=== PATIENT | male | born 1935 | race Caucasian/White ===

== ENCOUNTER 2017-06-05 21:38 | Emergency (ER) | payer MEDICARE ==
[~2017-06-05] VITALS: Ht 180.3 cm; Wt 72.5 kg
[2017-06-05 21:46] VITALS: BP 205/99; PULSE 92; RESP 20; TEMP 98; O2SAT 100
[2017-06-05] MEDS ORDERED: PROPOFOL 200 MG/20 ML AMP IV ONE (22:00)
[2017-06-05] MEDS ORDERED: TETANUS/DIPHTHERIA TOXOID ADULT 0.5 ML VIAL IM ONE (22:00)
--- NOTE | 2017-06-05 22:16 | PD ---
HPI Chief Complaint: Fall Time Seen by Provider: 21:54 Travel History International Travel<30 days: No Contact w/Intl Traveler<30days: No Traveled to known affect area: No History of Present Illness HPI 82-year-old male the presents to the ED for evaluation of fall. Apparently patient has been drinking today and had a trip and fall and landed onto his right shoulder. Patient suffered a dislocation per ambulance and was brought here for evaluation. Apparently there was multiple trials to put the shoulder back in place at the scene with no success. Patient denies any other medical issues and states that he takes no medications. History is hard to obtain from him as he is clinically intoxicated. He reports no other injuries or head injury. Follow-up was witnessed by family. Patient does have an abrasion to the right side of his ear as well as to his right hand. Has no allergies to medication. No chest pain or shortness of breath. No hip pain. Per patient he has never had any surgeries and he has never been in the hospital or seen a doctor per patient. He has no allergies to medication. No urinary or bowel movement issues. No back pain or neck pain. Patient does have obvious deformity to the right shoulder and cannot move it without significant pain. Patient keeps the shoulder externally rotated. PFSH Past Medical History Cerebrovascular Accident: Yes (ABOUT 10 YEARS AGO) Past Surgical History Surgical History: No Previous Surgery Social History Alcohol Use: Yes (BEER EVERY DAY) Tobacco Use: No Substance Use: No Allergies-Medications (Allergen,Severity, Reaction): Coded Allergies: No Known Allergies (Unverified , 06/05/17) Reported Meds & Prescriptions Reported Meds & Active Scripts Active No Active Prescriptions or Reported Medications Review of Systems Except as stated in HPI: all other systems reviewed are Neg Physical Exam Narrative GENERAL: SKIN: Warm and dry. HEAD: Atraumatic. Normocephalic. EYES: Pupils equal and round. No scleral icterus. No injection or drainage. ENT: No nasal bleeding or discharge. Mucous membranes pink and moist. Tongue is midline. No uvula deviation. NECK: Trachea midline. No JVD. CARDIOVASCULAR: Regular rate and rhythm. No murmurs, S3, S4. RESPIRATORY: No accessory muscle use. Clear to auscultation. Breath sounds equal bilaterally. GASTROINTESTINAL: Abdomen soft, non-tender, nondistended. Hepatic and splenic margins not palpable. MUSCULOSKELETAL: Extremities without clubbing, cyanosis, or edema. No obvious deformities. Full range of motion of the upper and lower extremities bilaterally with exception of the right shoulder which patient cannot move. Shoulders externally rotated when his hand above his head. Appears to have 2+ pulses. Neurovascularly intact with good high lead yarder strength. Sensation intact bilaterally. No other deformities noted. No lumbar, thoracic, cervical spine tenderness to palpation. No hip pain. No scapular tenderness to palpation. NEUROLOGICAL: Awake and alert. No obvious cranial nerve deficits. Motor grossly within normal limits. Five out of 5 muscle strength in the arms and legs. Normal speech. PSYCHIATRIC: Appropriate mood and affect; insight and judgment normal. Data Data Last Documented VS Vital Signs Date Time Temp Pulse Resp B/P (MAP) Pulse Ox O2 Delivery O2 Flow Rate FiO2 06/05/17 21:54 79 20 100 06/05/17 21:46 98.0 205/99 (134) Orders Orders Ice/Cold Pack (06/05/17 21:46) Iv Access Insert/Monitor (06/05/17 21:46) Ct Brain W/O Iv Contrast(Rout) (06/05/17 21:49) Shoulder, Complete (>2vws) (06/05/17 21:49) Tetanus/Diphtheria Tox Adult (Tetanus/Di (06/05/17 22:00) Propofol 200 Mg/20 Ml Inj (Diprivan 200 (06/05/17 22:00) Humerus, One View (06/05/17 ) Shoulder, Limited(2vws) (06/05/17 ) MDM Medical Decision Making Medical Screen Exam Complete: Yes Emergency Medical Condition: Yes Medical Record Reviewed: Yes Interpretation(s) Last Impressions Shoulder X-Ray 06/05/172148 Signed Impressions: Service Date/Time: Monday, June 05, 2017 21:53 - CONCLUSION: Luxatio erecta right shoulder. Andrew Guajardo MD Humerus X-Ray 06/05/17 0000 Signed Impressions: Service Date/Time: Monday, June 05, 2017 21:58 - CONCLUSION: No fracture. Andrew Guajardo MD Differential Diagnosis Fracture versus dislocation versus sprain versus strain versus head injury versus intoxication Narrative Course 82-year-old male presents to the ED for evaluation of right shoulder injury. Patient was properly examined and was found to have signs and symptoms concerning for dislocation and fracture. My attending evaluate the patient with me. Imaging order. IV was placed. X-ray was positive for dislocation. Recommendation at this time is for sedation for reduction of shoulder. Patient and family agree with this. After patient and family were told of risks and benefits of having conscious sedation family and patient agree. Paperwork was filled. Please refer to my attendings note. Using backwards traction shoulder was placed back in place and sling and swathe placed. xray for reduction was ordered. Case signed out to my attending pending disposition and plan. Scripts No Active Prescriptions or Reported Meds Buddy Neely Jun 05, 2017 22:16
--- NOTE | 2017-06-05 22:18 | RADRPT ---
EXAM DATE/TIME: 06/05/2017 21:53 [facility] COMPARISON: No previous studies available for comparison. INDICATIONS : Shoulder pain. MEDICAL HISTORY : None. SURGICAL HISTORY : None. ENCOUNTER: Initial ACUITY: 1 day PAIN SCORE: 5/10 LOCATION: Right shoulder FINDINGS: Multiple view examination of the right shoulder demonstrates humeral head displaced below and medial to the glenoid consistent with inferior dislocation. No fracture seen. The arm is an upward fixed abd uction.. CONCLUSION: Luxatio erecta right shoulder. Andrew Guajardo MD on June 05, 2017 at 22:12 Board Certified Radiologist. This report was verified electronically.
--- NOTE | 2017-06-05 22:19 | RADRPT ---
EXAM DATE/TIME: 06/05/2017 21:58 [facility] COMPARISON: No previous studies available for comparison. INDICATIONS : Pain in left shoulder. MEDICAL HISTORY : None. SURGICAL HISTORY : None. ENCOUNTER: Initial ACUITY: 1 day PAIN SCORE: 5/10 LOCATION: Left shoulder FINDINGS: Single view of the right humerus demonstrates no evidence of fracture. Bony mineralization is normal . CONCLUSION: No fracture. Andrew Guajardo MD on June 05, 2017 at 22:16 Board Certified Radiologist. This report was verified electronically.
[2017-06-05 22:25] VITALS: O2SAT 100
[2017-06-05 22:45] VITALS: O2SAT 100
[2017-06-05 23:19] VITALS: BP 190/89; PULSE 69; RESP 20; O2SAT 99
--- NOTE | 2017-06-05 23:27 | RADRPT ---
EXAM DATE/TIME: 06/05/2017 22:56 [facility] COMPARISON: SHOULDER RIGHT COMPLETE (>2VWS), June 05, 2017, 21:53. INDICATIONS : Post reduction right shoulder. MEDICAL HISTORY : None. SURGICAL HISTORY : None. ENCOUNTER: Subsequent ACUITY: 1 day PAIN SCORE: 2/10 LOCATION: Right upper extremity FINDINGS: Previously seen glenohumeral joint dislocation has been reduced. Alignment is now normal. 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 Potentially a Hill-Sachs lesion of th e humeral head. I don't see a displaced fracture. CONCLUSION: Interim reduction. No displaced fracture demonstrated. Roldan Bae MD on June 05, 2017 at 23:24 Board Certified Radiologist. This report was verified electronically.
--- NOTE | 2017-06-05 23:34 | RADRPT ---
EXAM DATE/TIME: 06/05/2017 23:17 [facility] COMPARISON: No previous studies available for comparison. INDICATIONS : Trauma right side abrasion. RADIATION DOSE: 66.34 CTDIvol (mGy) MEDICAL HISTORY : Stroke. SURGICAL HISTORY : None. ENCOUNTER: Initial ACUITY: 1 day PAIN SCALE: 5/10 LOCATION: Right cranial TECHNIQUE: Multiple contiguous axial images were obtained of the head. Using automated exposure control and adj ustment of the mA and/or kV according to patient size, radiation dose was kept as low as reasonably a chievable to obtain optimal diagnostic quality images. DICOM format image data is available electro nically for review and comparison. FINDINGS: CEREBRUM: The ventricles are normal for age. No evidence of midline shift, mass lesion, hemorrhage or acute in farction. No extra-axial fluid collections are seen. There is an old high left frontal lobe infarct. There's chronic low attenuation in the bilateral periventricular white matter. POSTERIOR FOSSA: The cerebellum and brainstem are intact. The 4th ventricle is midline. The cerebellopontine angle i s unremarkable. EXTRACRANIAL: The visualized portion of the orbits is intact. SKULL: The calvaria is intact. No evidence of skull fracture. CONCLUSION: 1. No bleed or other acute intracranial abnormality. 2. Chronic white matter changes and an old left frontal lobe infarct. Roldan Bae MD on June 05, 2017 at 23:32 Board Certified Radiologist. This report was verified electronically.
[2017-06-05 23:59] VITALS: BP 152/87; PULSE 78; RESP 16; O2SAT 100
--- NOTE | 2017-06-06 01:08 | PD ---
Physical Exam Date Seen by Provider: Jun 06, 2017 Time Seen by Provider: 01:05 Narrative GENERAL: Well-developed well-nourished male no acute distress no respiratory distress; GCS 15 SKIN: Warm and dry. HEAD: Normocephalic. EYES: No scleral icterus. No injection or drainage. ENT: Mucous membranes moist edentulous attention right pinna abrasion with some ecchymosis tympanic membrane without hemotympanum or perforation NECK: Supple, trachea midline. No JVD or lymphadenopathy. No midline tenderness to direct palpation along the cervical spine no bony step-off. CARDIOVASCULAR: Regular rate and rhythm without murmurs, gallops, or rubs. RESPIRATORY: Breath sounds equal bilaterally. No accessory muscle use. GASTROINTESTINAL: Abdomen soft, non-tender, nondistended. MUSCULOSKELETAL: No cyanosis, or edema. Patient with obvious step-off deformity of the right shoulder distal extremities neurovascular tendon intact. BACK: Nontender without obvious deformity. No CVA tenderness. Data Data Last Documented VS Vital Signs Date Time Temp Pulse Resp B/P (MAP) Pulse Ox O2 Delivery O2 Flow Rate FiO2 06/05/17 23:59 78 16 152/87 (108) 100 Nasal Cannula 1.00 06/05/17 21:46 98.0 Orders Orders Ice/Cold Pack (06/05/17 21:46) Iv Access Insert/Monitor (06/05/17 21:46) Ct Brain W/O Iv Contrast(Rout) (06/05/17 21:49) Shoulder, Complete (>2vws) (06/05/17 21:49) Tetanus/Diphtheria Tox Adult (Tetanus/Di (06/05/17 22:00) Propofol 200 Mg/20 Ml Inj (Diprivan 200 (06/05/17 22:00) Humerus, One View (06/05/17 ) Shoulder, Limited(2vws) (06/05/17 ) Ed Discharge Order (06/06/17 01:04) [facility] Medical Record Reviewed: Yes Supervised Visit with RITA: Yes Interpretation(s) Last Impressions Shoulder X-Ray 06/05/172148 Signed Impressions: Service Date/Time: Monday, June 05, 2017 21:53 - CONCLUSION: Luxatio erecta right shoulder. Andrew Guajardo MD Head CT 06/05/172148 Signed Impressions: Service Date/Time: Monday, June 05, 2017 23:17 - CONCLUSION: 1. No bleed or other acute intracranial abnormality. 2. Chronic white matter changes and an old left frontal lobe infarct. Roldan Bae MD Shoulder X-Ray 06/05/17 0000 Signed Impressions: Service Date/Time: Monday, June 05, 2017 22:56 - CONCLUSION: Interim reduction. No displaced fracture demonstrated. Roldan Bae MD Humerus X-Ray 06/05/17 0000 Signed Impressions: Service Date/Time: Monday, June 05, 2017 21:58 - CONCLUSION: No fracture. Andrew Guajardo MD Vital Signs Date Time Temp Pulse Resp B/P (MAP) Pulse Ox O2 Delivery O2 Flow Rate FiO2 06/05/17 23:59 78 16 152/87 (108) 100 Nasal Cannula 1.00 06/05/17 23:19 69 20 190/89 (122) 99 Nasal Cannula 3.00 06/05/17 22:45 100 Nasal Cannula 3.00 06/05/17 22:25 100 4.00 06/05/17 22:25 100 Nasal Cannula 4.00 06/05/17 21:54 79 20 100 06/05/17 21:46 98.0 92 20 205/99 (134) 100 Differential Diagnosis Subluxation dislocation fracture minor closed head injury ICH alcohol ingestion Narrative Course Right shoulder dislocation reduction performed by Gilmar Neely PA-C under my supervision using technique of gentle traction countertraction; please refer to his procedure note. It is now 1 AM patient is awake imaging studies have been reviewed no fracture or dislocation has been successfully reduced CT brain noncontrast reveals no acute abnormality GCS is 15 family is at bedside and will be discharged to home Procedures Procedure Narrative After the risks and benefits were discussed the following procedure was performed: MODERATE SEDATION: The patient was placed on a nuclear monitoring technician and pulse oximetry. An ambu bag and suction was immediately available at bedside. The patient was monitored by the nurse. Oxygen saturation, heart rate and blood pressure were monitored. Procedural sedation was acheived using 40 mg of propofol IV. The patient was observed until awake and alert. Procedural Sedation time in attendance was 35 minutes. Diagnosis Primary Impression: Dislocation, shoulder closed Additional Impressions: Minor closed head injury Alcohol ingestion Referrals: Orthopaedic Surgeon call for appointment Patient Instructions: General Instructions Additional Instruction: Follow head injury precautions 24 hours Wear sling to right upper extremity and follow-up with orthopedist Take ibuprofen/Advil/Motrin per package directions as needed for pain associated with inflammation Use ice pack intermittently to right shoulder for first 12-24 hrs. Return to the emergency department for any concerns or change in condition Scripts No Active Prescriptions or Reported Meds Disposition: 01 DISCHARGE HOME Condition: Stable Luana Kidd MD Jun 06, 2017 01:08
== END 2017-06-06 02:45 | disposition home or self-care (01) ==
LOC: NEPC 21:38
DX: S43.004A Unspecified dislocation of right shoulder joint, initial encounter (principal); S09.90XA Unspecified injury of head, initial encounter; W01.0XXA Fall on same level from slipping, tripping and stumbling without subsequent striking against object, initial encounter; Z23 Encounter for immunization
CPT/HCPCS: 23650; 29240; 70450; 73030; 90471; 90714; 96374; 99152

== ENCOUNTER 2017-06-16 01:54 | Inpatient (IN) | payer MEDICARE ==
[2017-06-16] VITALS (13 sets, daily range): BP systolic 144–220; BP diastolic 65–108; PULSE 58–102; RESP 16–20; TEMP 97.4–98.1; O2SAT 62–99
[2017-06-16] MEDS ORDERED: SODIUM CHLORIDE 0.9% FLUSH 10 ML FLUSH IVF PRN (02:15)
[2017-06-16 02:42] LABS: AUTOMATED NEUTROPHIL # 6.7 TH/MM3 (1.8-7.7); BASOPHIL # 0.1 TH/MM3 (0-0.2); BASOPHIL % 0.7 % (0.0-2.0); EOSINOPHIL # 0.2 TH/MM3 (0-0.4); EOSINOPHIL % 1.9 % (0.0-4.0); HEMATOCRIT 40.7 % (39.0-51.0); HEMOGLOBIN 13.9 GM/DL (13.0-17.0); LYMPH % 13.2 % (9.0-44.0); LYMPHOCYTE # 1.2 TH/MM3 (1.0-4.8); MEAN CELL VOLUME 89.8 FL (80.0-100.0); MEAN CORPUSCULAR HEMOGLOBIN 30.7 PG (27.0-34.0); MEAN CORPUSCULAR HGB CONC 34.2 % (32.0-36.0); MEAN PLATELET VOLUME 9.1 FL (7.0-11.0); MONO % 8.6 % (0.0-8.0); MONOCYTE # 0.8 TH/MM3 (0-0.9); NEUT % 75.6 % (16.0-70.0); PLATELET COUNT 285 TH/MM3 (150-450); RED BLOOD COUNT 4.53 MIL/MM3 (4.50-5.90); RED CELL DISTRIBUTION WIDTH 13.2 % (11.6-17.2); WHITE BLOOD COUNT 8.9 TH/MM3 (4.0-11.0)
[2017-06-16] MEDS ORDERED: LABETALOL HCL 100 MG/20 ML VIAL IV PUSH ONE (02:45)
--- NOTE | 2017-06-16 02:53 | RADRPT ---
EXAM DATE/TIME: 06/16/2017 02:19 [facility] COMPARISON: CT BRAIN W/O CONTRAST, June 05, 2017, 23:17. INDICATIONS : Dizziness; elevated blood pressure. RADIATION DOSE: 56.35 CTDIvol (mGy) MEDICAL HISTORY : Hypertension. Cerebrovascular disease. SURGICAL HISTORY : None. ENCOUNTER: Initial ACUITY: 1 day PAIN SCALE: 0/10 LOCATION: cranial TECHNIQUE: Multiple contiguous axial images were obtained of the head. Using automated exposure control and adj ustment of the mA and/or kV according to patient size, radiation dose was kept as low as reasonably a chievable to obtain optimal diagnostic quality images. DICOM format image data is available electro nically for review and comparison. FINDINGS: CEREBRUM: The ventricles, sulci, and basal cisterns are prominent, characteristic of moderate central and corti jason atrophy; stable from prior. Old infarction in the high left frontal region stable appearance. N o evidence of acute hemorrhage or mass effect. No extra-axial fluid collections. POSTERIOR FOSSA: The cerebellum and brainstem are intact. The 4th ventricle is midline. The cerebellopontine angle i s unremarkable. EXTRACRANIAL: The visualized portion of the orbits is intact. SKULL: The calvaria is intact. No evidence of skull fracture. CONCLUSION: 1. No acute findings in the brain. 2. Moderate central and cortical atrophy and old left high frontal infarction, stable from 06/05/17. Zachariah Lyons MD on June 16, 2017 at 2:49 Board Certified Radiologist. This report was verified electronically.
[2017-06-16 02:58] LABS: ALBUMIN 3.4 GM/DL (3.4-5.0); ALT (GPT) 17 U/L (12-78); AST (GOT) 15 U/L (15-37); BICARBONATE 26.6 MEQ/L (21.0-32.0); BLOOD UREA NITROGEN 16 MG/DL (7-18); CALCIUM 8.7 MG/DL (8.5-10.1); CHLORIDE 108 MEQ/L (98-107); CREATININE 0.79 MG/DL (0.60-1.30); GLOMERULAR FILTRATION RATE 94 ML/MIN (>89); GLUCOSE,RANDOM 86 MG/DL (74-106); SODIUM (NA) 142 MEQ/L (136-145)
[2017-06-16 03:02] LABS: ALKALINE PHOSPHATASE 65 U/L (45-117); TOTAL BILIRUBIN ADULT 0.3 MG/DL (0.2-1.0); TOTAL PROTEIN 7.1 GM/DL (6.4-8.2); TROPONIN I 0.04 NG/ML (0.02-0.05)
[2017-06-16] MEDS ORDERED: ASPIRIN 81 MG CHEW TAB CHEW ONE (03:15)
[2017-06-16] MEDS ORDERED: LISINOPRIL 5 MG TAB PO ONE (03:45)
[2017-06-16] MEDS ORDERED: amLODIPine BESYLATE 5 MG TAB PO ONE (03:45)
[2017-06-16] MEDS ORDERED: SODIUM CHLOR 0.9% 1000 ML INJ 1,000 ML IV SCH (04:10)
[2017-06-16] MEDS ORDERED: DEXTROSE 50% IN WATER 50 ML VIAL(D50) IV PUSH PRN (04:15)
[2017-06-16] MEDS ORDERED: ACETAMINOPHEN 325 MG TAB PO PRN (04:15)
[2017-06-16] MEDS ORDERED: ENALAPRILAT 1.25 MG/ML VIAL IV PUSH PRN (04:15)
[2017-06-16] MEDS ORDERED: LACTULOSE SYRUP 20 GM/30 ML CUP PO PRN (04:15)
[2017-06-16] MEDS ORDERED: BISACODYL 10 MG SUPP RECTAL PRN (04:15)
[2017-06-16] MEDS ORDERED: GLUCAGON 1 MG/ML VIAL OTHER PRN (04:15)
[2017-06-16] MEDS ORDERED: SENNOSIDES 8.6 MG TAB PO PRN (04:15)
[2017-06-16] MEDS ORDERED: SODIUM CHLORIDE 0.9% FLUSH 10 ML FLUSH IV FLUSH PRN ×2 (04:15)
[2017-06-16] MEDS ORDERED: MAGNESIUM HYDROXIDE SUSP 30 ML CUP PO PRN (04:15)
[2017-06-16] MEDS ORDERED: ONDANSETRON HCL 4 MG/2 ML VIAL IVP PRN (04:15)
--- NOTE | 2017-06-16 04:45 | HHI.HP ---
[facility] Primary [facility] Physician Sharon Womack MD Admission Diagnosis Diagnoses: (1) CVA (cerebral vascular accident) Diagnosis: Principal (2) HTN (hypertension) Diagnosis: Principal Travel History International Travel<30 Days: No Contact w/Intl Traveler <30 Da: No Traveled to Known Affected Are: No History of Present Illness This is an 82-year-old male with a PMH of CVA w/ Residual Right-Sided Weakness who was brought to the ER by EMS secondary to worsening right-sided weakness and "word difficulty" per Daughter. Pt unable to provide any history, history obtained from daughter at bedside. States pt has h/o CVA w/ right-sided weakness, however ambulates without assistance. Approx 2wks ago had fall and was seen in ER 06/06/17 w/ shoulder dislocation s/p reduction, daughter states pt has had progressive difficulty w/ ambulation since that time. Today, however he told her symptoms were acutely worse. Daughter also notes word finding difficulty and garbled speech for approx 3-4wks. States he did not seek medical attention because "he doesn't like going to the doctor". Not on home medications. Hasn't seen a doctor in 50yrs per pt. On arrival, BP 220/108 , HR 74, O2 sat 97% RA, Afebrile. S/p Labetalol, repeat BP 149/76. CBC unremarkable. Chemistry unremarkable. INR 1.0. CT Head with no acute findings , moderate central and cortical atrophy, old left high frontal infarct stable from 06/05/2017. Review of Systems Except as stated in HPI: all other systems reviewed are Neg ROS: 14 point review of systems otherwise negative. Past Family Social History Past Medical History PMH: CVA w/ Residual Right-Sided Weakness Past Surgical History PAST SURGICAL HISTORY: None Allergies: Coded Allergies: No Known Allergies (Unverified , 06/05/17) Family History PAST FAMILY HISTORY: Reviewed. No h/o DM or CAD Social History PAST SOCIAL HISTORY: Positive for alcohol. Negative for tobacco or drugs. Physical Exam Vital Signs Vital Signs Date Time Temp Pulse Resp B/P (MAP) Pulse Ox O2 Delivery O2 Flow Rate FiO2 06/16/17 04:04 58 16 149/76 (100) 97 06/16/17 02:53 62 16 177/90 (119) 98 06/16/17 02:04 97.8 74 18 220/108 (145) 97 Physical Exam PE: GENERAL: Elderly white male in no acute distress. Minimally conversive, + garbled speech. Daughter at bedside HEENT: PERRLA, EOMI. No scleral icterus or conjunctival pallor. No lid lag or facial droop. CARDIOVASCULAR: Regular rate and rhythm. No obvious murmurs to auscultation. No chest tenderness to palpation. RESPIRATORY: No obvious rhonchi or wheezing. Clear to auscultation. Breath sounds equal bilaterally. GASTROINTESTINAL: Abdomen soft, non-tender, nondistended. BS normal. MUSCULOSKELETAL: Extremities without clubbing, cyanosis, or edema. No obvious deformities. NEUROLOGICAL: Awake, alert. No focal neurologic deficits. Moving both upper and lower extremities spontaneously, 4/5 RUE/RLE. Laboratory Laboratory Tests Test 06/16/17 02:20 06/16/17 02:44 White Blood Count 8.9 Red Blood Count 4.53 Hemoglobin 13.9 Hematocrit 40.7 Mean Corpuscular Volume 89.8 Mean Corpuscular Hemoglobin 30.7 Mean Corpuscular Hemoglobin Concent 34.2 Red Cell Distribution Width 13.2 Platelet Count 285 Mean Platelet Volume 9.1 Neutrophils (%) (Auto) 75.6 Lymphocytes (%) (Auto) 13.2 Monocytes (%) (Auto) 8.6 Eosinophils (%) (Auto) 1.9 Basophils (%) (Auto) 0.7 Neutrophils # (Auto) 6.7 Lymphocytes # (Auto) 1.2 Monocytes # (Auto) 0.8 Eosinophils # (Auto) 0.2 Basophils # (Auto) 0.1 CBC Comment DIFF FINAL Differential Comment Blood Urea Nitrogen 16 Creatinine 0.79 Random Glucose 86 Total Protein 7.1 Albumin 3.4 Calcium Level 8.7 Alkaline Phosphatase 65 Aspartate Amino Transf (AST/SGOT) 15 Alanine Aminotransferase (ALT/SGPT) 17 Total Bilirubin 0.3 Sodium Level 142 Potassium Level 4.0 Chloride Level 108 Carbon Dioxide Level 26.6 Anion Gap 7 Estimat Glomerular Filtration Rate 94 Troponin I 0.04 Prothrombin Time 10.0 Prothromb Time International Ratio 1.0 Result Diagram: 06/16/1721906/16/17219 Caprini VTE Risk Assessment Caprini VTE Risk Assessment: Mod/High Risk (score >= 2) Caprini Risk Assessment Model Point Value = 1 Point Value = 2 Point Value = 3 Point Value = 5 Age 41-60 Minor surgery BMI > 25 kg/m2 Swollen legs Varicose veins or History of unexplained or recurrent spontaneous Oral contraceptives or hormone replacement Sepsis (< 1 month) Serious lung disease, including pneumonia (< 1 month) Abnormal pulmonary function Acute myocardial infarction Congestive heart failure (< 1 month) History of inflammatory bowel disease Medical patient at bed rest Age 61-74 Arthroscopic surgery Major open surgery (> 45 min) Laparoscopic surgery (> 45 min) Malignancy Confined to bed (> 72 hours) Immobilizing plaster cast Central venous access Age >= 75 History of VTE Family history of VTE Factor V Leiden Prothrombin [id number] Lupus anticoagulant Anticardiolipin antibodies Elevated serum homocysteine Heparin-induced thrombocytopenia Other congenital or acquired thrombophilia Stroke (< 1 month) Elective arthroplasty Hip, pelvis, or leg fracture Acute spinal cord injury (< 1 month) Prophylaxis Regimen Total Risk Factor Score Risk Level Prophylaxis Regimen 0-1 Low Early ambulation 2 Moderate Order ONE of the following: *Sequential Compression Device (SCD) *Heparin 5000 units SQ BID 3-4 Higher Order ONE of the following medications: *Heparin 5000 units SQ TID *Enoxaparin/Lovenox 40 mg SQ daily (WT < 150 kg, CrCl > 30 mL/min) *Enoxaparin/Lovenox 30 mg SQ daily (WT < 150 kg, CrCl > 10-29 mL/min) *Enoxaparin/Lovenox 30 mg SQ BID (WT < 150 kg, CrCl > 30 mL/min) AND/OR *Sequential Compression Device (SCD) 5 or more Highest Order ONE of the following medications: *Heparin 5000 units SQ TID (Preferred with Epidurals) *Enoxaparin/Lovenox 40 mg SQ daily (WT < 150 kg, CrCl > 30 mL/min) *Enoxaparin/Lovenox 30 mg SQ daily (WT < 150 kg, CrCl > 10-29 mL/min) *Enoxaparin/Lovenox 30 mg SQ BID (WT < 150 kg, CrCl > 30 mL/min) AND *Sequential Compression Device (SCD) Assessment and Plan Problem List: (1) CVA (cerebral vascular accident) ICD Code: I63.9 - Cerebral infarction, unspecified (2) HTN (hypertension) ICD Code: I10 - Essential (primary) hypertension Assessment and Plan A/P: 1. CVA: H/o CVA w/ residual right-sided weakness, now w/ worsening weakness x2 wks, but today worse than prior-difficult history to obtain as pt unable to provide history and daughter has limited knowledge of pt's condition. CT Head w / no acute findings, Neuro Checks. NPO, IVF, Check MRI/MRA, Check Lipid Profile /Hgb A1c. Start ASA, Statin. Consult Neurology for further evaluation. PT/ Speech for eval/tx. 2. HTN: Uncontrolled. BP 220's systolic, not on home medications as does not follow w/ doctors. S/p Labetalol in ER, BP now 140's, will hold further antihypertensives, monitor BP. 3. DVT Prophylaxis: SCD/Teds 4. Social work for d/c planning as needed. 5. Case discussed w/ ER physician at length, labs/records/imaging reviewed by me. Physician Certification 2 Midnight Certification Type: Admission for Inpatient Services Order for Inpatient Services The services are ordered in accordance with Medicare regulations or non- Medicare payer requirements, as applicable. In the case of services not specified as inpatient-only, they are appropriately provided as inpatient services in accordance with the 2-midnight benchmark. Estimated LOS (days): 2 days is the estimated time the patient will need to remain in the hospital, assuming treatment plan goals are met and no additional complications. Post-Hospital Plan: Not yet determined Alicia Rodríguez MD Jun 16, 2017 04:45
[2017-06-16] MEDS: INSULIN ASPART SUPPLEMENTAL SCALE SQ SCH ×4 (08:00→21:00)
--- NOTE | 2017-06-16 08:29 | MB ---
cc: Elías Tavera MD, PhD DATE: 06/16/2017 REASON FOR CONSULTATION: Stroke. HISTORY OF PRESENT ILLNESS: Mr. Ivan is a very nice 82-year-old man who 10 years ago had a stroke resulting in right-sided weakness. He did not seek medical attention at that time. He has been having difficulty with speech for the past month or so. He dislocated his shoulder on the right 2 weeks ago. However, yesterday he had acute onset of increasing right-sided weakness. His daughter relates he was not on any blood thinners, not on aspirin or any other antiplatelet agents. PAST MEDICAL HISTORY: He has a history of stroke as noted above, history of right shoulder dislocation. ALLERGIES: NONE KNOWN. MEDICATIONS: 1. Currently, he is started on an aspirin here in the hospital 81 mg daily. 2. Pravachol 40 mg daily. 3. Senna. 4. Vasotec p.r.n. 5. Zofran p.r.n. 6. Tylenol p.r.n. NEUROLOGICAL EXAMINATION: VITAL SIGNS: Blood pressure is 176/79, pulse is 61, respiratory rate 17, temperature 98 degrees. HIGHER CORTICAL FUNCTION: Alert and oriented. Speech is fluent, but dysarthric. CRANIAL NERVES: He has got a right facial droop. Other cranial nerves are normal. MOTOR: He is weak in the right arm and right leg at 4/5 with normal strength on the left. Reflexes are symmetric. IMAGING STUDIES: CT of the brain: No acute changes present. LABORATORY DATA: The white count is 8900; hemoglobin 13.9; hematocrit 40.7%; platelet count 285,000. Sodium 142, potassium is 4, chloride 108, CO2 is 26.6. The BUN is 16, creatinine 0.79, GFR is 94, glucose 86, calcium 8.7, AST 15, ALT 17. PT 10, INR 1.0. IMPRESSION: Probable acute left hemisphere stroke in the face of an old stroke. RECOMMENDATIONS: We will increase the aspirin to 325 mg daily. We will recommend MRI and MRA brain, echocardiogram, carotid ultrasound as well as lipid panel. Monitor cardiac telemetry to rule out atrial fibrillation. I also recommend rehabilitation medicine consult. Elías Tavera MD, PhD DAX/DAVIE , 08:13 AM , 08:27 AM
[2017-06-16] MEDS ORDERED: ASPIRIN 81 MG CHEW TAB PO SCH (09:00)
[2017-06-16] MEDS ORDERED: SODIUM CHLORIDE 0.9% FLUSH 10 ML FLUSH IV FLUSH SCH (09:00)
[2017-06-16] MEDS: ASPIRIN 325 MG TAB PO SCH (10:55)
[2017-06-16] MEDS: DOCUSATE SODIUM 50 MG/SENNA 8.6 MG TAB PO SCH ×2 (10:55→22:25)
[2017-06-16] MEDS: SODIUM CHLORIDE 0.9% FLUSH 10 ML FLUSH IV FLUSH SCH ×2 (12:00→22:25)
--- NOTE | 2017-06-16 12:50 | RADRPT ---
EXAM DATE/TIME: 06/16/2017 11:34 [facility] COMPARISON: No previous studies available for comparison. INDICATIONS : Slurred speech CONTRAST: 20 cc Omniscan (gadodiamide) IV MEDICAL HISTORY : CVA w/ Residual Right-Sided Weakness SURGICAL HISTORY : Tonsillectomy. ENCOUNTER: Initial ACUITY: 1 day PAIN SCORE: 0/10 LOCATION: neck Percent stenosis is calculated using the diameter of the stenotic region over the diameter of the nor mal distal internal carotid artery. TECHNIQUE: Bolus infused MRA of the extracranial circulation was performed using a neurovascular coil. Post pro cessing was performed including rotating subvolume maximum intensity projections of each carotid maeve ry, rotating full volume maximum intensity projections of both carotid arteries, sagittal and coronal sliding thin slab reformations of each carotid artery, and left oblique sliding thin slab reformatio n through the aortic arch to include the origin of the arch branch vessels. FINDINGS: AORTIC ARCH: There is a three vessel origin of the great vessels from the aorta. No evidence of ostial narrowing. RIGHT CAROTID: The common carotid artery is tortuous. There is a severe stenosis at the carotid bulb/proximal international operations manager al artery narrowing the lumen by at least 80%. This area extends over approximately 0.9 cm length. Th e distal internal carotid artery is normal. The external carotid artery is intact. LEFT CAROTID: The common carotid artery is intact. The carotid bulb has a normal configuration without ulceration or narrowing. The internal carotid artery lumen is smooth without stenosis. There is a short focal severe stenosis at the origin of the left external carotid artery is intact. VERTEBRALS: The vertebral arteries have a symmetric diameter. No stenotic lesions are seen. CONCLUSION: 1. Severe stenosis at the proximal right internal cord artery. 2. The left internal coronary is free of significant stenosis. 3. The common carotid areas are tortuous bilaterally. 4. Focal stenosis at the origin of the left external carotid artery. Roldan Cali MD on June 16, 2017 at 12:32 Board Certified Radiologist. This report was verified electronically.
--- NOTE | 2017-06-16 12:56 | RADRPT ---
EXAM DATE/TIME: 06/16/2017 11:34 [facility] COMPARISON: No previous studies available for comparison. INDICATIONS : Slurred speech. MEDICAL HISTORY : CVA w/ Residual Right-Sided Weakness SURGICAL HISTORY : Tonsillectomy. ENCOUNTER: Initial ACUITY: 1 day PAIN SCORE: 0/10 LOCATION: cranial TECHNIQUE: Multiplanar, multisequence MRI of the brain was performed without contrast. FINDINGS: CEREBRUM: The ventricles and cortical sulci are widened. There are multiple areas of signal abnormality seen on the diffusion weighted images including at the superior posterior left frontal lobe, superior supervisor paint roller covers ior right parietal lobe, a small focus at the anterior inferior right frontal lobe, and at the left p osterior basal ganglia and extending to the posterior capsule on the left. These demonstrate some sig nal abnormality on the flair images and are likely subacute. No evidence of midline shift, mass lesi on, hemorrhage. No extraaxial fluid collections are seen. The pituitary gland and suprasellar ciste rn are normal in configuration. WHITE MATTER: There is increased signal seen throughout the cerebral white matter. POSTERIOR FOSSA: The cerebellum and brainstem are intact. The 4th ventricle is midline. The cerebellopontine angle is unremarkable. The cerebellar tonsils are normal in position. DIFFUSION IMAGING: There are multiple areas of signal abnormality seen on the diffusion weighted images including at the superior posterior left frontal lobe, superior posterior right parietal lobe, a small focus at the a nterior inferior right frontal lobe, and at the left posterior basal ganglia and extending to the pos terior capsule on the left.. EXTRACRANIAL: The visualized portions of the orbits and paranasal sinuses are unremarkable. CONCLUSION: 1. Multiple areas of suspected subacute infarction including at the posterior left frontal lobe, righ t parietal lobe, posterior left basal ganglia, and a small punctate focus at the right frontal lobe. 2. Age-related atrophy. 3. Widespread demyelination likely from small vessel ischemic change. Roldan Cali MD on June 16, 2017 at 12:48 Board Certified Radiologist. This report was verified electronically.
--- NOTE | 2017-06-16 13:06 | RADRPT ---
EXAM DATE/TIME: 06/16/2017 11:34 [facility] COMPARISON: No previous studies available for comparison. INDICATIONS : Slurred speech. MEDICAL HISTORY : CVA w/ Residual Right-Sided Weakness SURGICAL HISTORY : Tonsillectomy. ENCOUNTER: Initial ACUITY: 1 day PAIN SCORE: 0/10 LOCATION: cranial Please note a normal MRA of the brain does not entirely exclude the possibility of a small aneurysm, nor the possibility of distal intracranial vessel disease. TECHNIQUE: 3D time of flight MRA was performed. Source images, multiplanar STS MIP, and 3D volume MIP reconstru ctions were reviewed. FINDINGS: There is excellent visualization of the major intracranial arteries out to the second-order branch ve ssels. There is no evidence for aneurysm and no evidence for vascular malformation. The left A1 segment of the anterior cerebral artery is absent. The left A2 segment fills through a pa tent anterior communicating artery from the right side. There does appear to be some narrowing and ir regularity at the distal M1 segment of the left middle cerebral artery. There may be a small area of thrombus seen in this region. The lumen may be narrowed up to 50% in this region. The distal flow mally ears fairly normal. CONCLUSION: Focal short segment of luminal narrowing and irregularity at the distal M1 segment of the left middle cerebral artery concerning for a small area of thrombus. Flow does extend beyond this region. Roldan Cali MD on June 16, 2017 at 12:57 Board Certified Radiologist. This report was verified electronically.
[2017-06-16] MEDS ORDERED: GADODIAMIDE PF 287 MG/ML 20 ML VIAL (for RAD MRI) IVCONTRAST ONE (13:31)
[2017-06-16] MEDS: PRAVASTATIN SOD 40 MG TAB PO SCH (22:25)
[2017-06-17 04:45] VITALS: BP 158/84; PULSE 105; RESP 20; TEMP 98.6; O2SAT 95
[2017-06-17] MEDS ORDERED: LORazepam 2 MG/ML VIAL IV PUSH ONE (06:45)
[2017-06-17 06:48] LABS: AUTOMATED NEUTROPHIL # 7.3 TH/MM3 (1.8-7.7); BASOPHIL % 0.4 % (0.0-2.0); EOSINOPHIL # 0.1 TH/MM3 (0-0.4); EOSINOPHIL % 1.3 % (0.0-4.0); HEMATOCRIT 43.2 % (39.0-51.0); HEMOGLOBIN 14.7 GM/DL (13.0-17.0); LYMPH % 7.5 % (9.0-44.0); LYMPHOCYTE # 0.7 TH/MM3 (1.0-4.8); MEAN CORPUSCULAR HEMOGLOBIN 30.7 PG (27.0-34.0); MEAN CORPUSCULAR HGB CONC 34.1 % (32.0-36.0); MEAN PLATELET VOLUME 8.8 FL (7.0-11.0); MONO % 7.3 % (0.0-8.0); MONOCYTE # 0.6 TH/MM3 (0-0.9); NEUT % 83.5 % (16.0-70.0); PLATELET COUNT 307 TH/MM3 (150-450); RED BLOOD COUNT 4.79 MIL/MM3 (4.50-5.90); RED CELL DISTRIBUTION WIDTH 13.2 % (11.6-17.2); WHITE BLOOD COUNT 8.8 TH/MM3 (4.0-11.0)
[2017-06-17 07:05] LABS: ALBUMIN 3.5 GM/DL (3.4-5.0); AST (GOT) 17 U/L (15-37); BICARBONATE 26.6 MEQ/L (21.0-32.0); BLOOD UREA NITROGEN 11 MG/DL (7-18); CALCIUM 8.9 MG/DL (8.5-10.1); CHLORIDE 105 MEQ/L (98-107); CHOLESTEROL 215 MG/DL (120-200); CREATININE 0.72 MG/DL (0.60-1.30); GLOMERULAR FILTRATION RATE 105 ML/MIN (>89); GLUCOSE,RANDOM 74 MG/DL (74-106); SODIUM (NA) 142 MEQ/L (136-145)
[2017-06-17 07:09] LABS: ALKALINE PHOSPHATASE 73 U/L (45-117); ALT (GPT) 19 U/L (12-78); CHOLESTEROL/ HDL RATIO 4.42 RATIO; HDL CHOLESTEROL 48.6 MG/DL (40.0-60.0); LDL CHOLESTEROL 152 MG/DL (0-99); TOTAL BILIRUBIN ADULT 0.5 MG/DL (0.2-1.0); TOTAL PROTEIN 7.3 GM/DL (6.4-8.2); TRIGLYCERIDES 70 MG/DL (42-150)
[2017-06-17 07:45] VITALS: BP 151/93; PULSE 99; RESP 18; TEMP 97.4; O2SAT 95
[2017-06-17] MEDS: ASPIRIN 325 MG TAB PO SCH (08:00)
[2017-06-17] MEDS: DOCUSATE SODIUM 50 MG/SENNA 8.6 MG TAB PO SCH ×2 (08:00→21:00)
[2017-06-17] MEDS: INSULIN ASPART SUPPLEMENTAL SCALE SQ SCH ×4 (08:00→21:00)
[2017-06-17] MEDS: SODIUM CHLORIDE 0.9% FLUSH 10 ML FLUSH IV FLUSH SCH ×2 (09:03→21:00)
--- NOTE | 2017-06-17 09:24 | HHI.PR ---
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 Right carotid stenosis Plan continue aspirin 325 mg dailyu monitor cardiac telemetry to r/o afib follow up echocardiogram CTA carotids and brain--if confirms significant carotid stenosis, recommend vascular surgery consult Diagnosis/Plan: Subjective Subjective Comments No acute events reported Active Medications Current Medications Medications (Trade) Dose Ordered Sig/Leonor Route Start Time Stop Time Status Last Admin (NS Flush) 2 ml BID IV FLUSH 06/16/17 09:00 06/17/17 09:03 (NS Flush) 2 ml UNSCH PRN IV FLUSH 06/16/17 04:15 (Vasotec Inj) 1.25 mg Q4H PRN IV PUSH 06/16/17 04:15 (Pravachol) 40 mg HS PO 06/16/17 21:00 06/16/17 22:25 (NovoLOG SUPPLEMENTAL SCALE) 1 ACHS SQ 06/16/17 08:00 06/16/17 18:00 (D50w (Vial) Inj) 50 ml UNSCH PRN IV PUSH 06/16/17 04:15 (Glucagon Inj) 1 mg UNSCH PRN OTHER 06/16/17 04:15 (Zofran Inj) 4 mg Q6H PRN IVP 06/16/17 04:15 (Tylenol) 650 mg Q6H PRN PO 06/16/17 04:15 (Leslye-Colace) 1 tab BID PO 06/16/17 09:00 06/17/17 08:00 (Milk Of Magnesia Liq) 30 ml Q12H PRN PO 06/16/17 04:15 (Senokot) 17.2 mg Q12H PRN PO 06/16/17 04:15 (Dulcolax Supp) 10 mg DAILY PRN RECTAL 06/16/17 04:15 (Lactulose Liq) 30 ml DAILY PRN PO 06/16/17 04:15 (Aspirin) 325 mg DAILY PO 06/16/17 09:00 06/17/17 08:00 Allergies Allergies Coded Allergies No Known Allergies (Unverified06/05/17) Exam I&O / VS Vital Signs Date Time Temp Pulse Resp B/P (MAP) Pulse Ox O2 Delivery O2 Flow Rate FiO2 06/17/17 07:45 97.4 99 18 151/93 (112) 95 06/17/17 04:45 98.6 105 20 158/84 (108) 95 06/16/17 23:45 97.7 62 18 173/77 (109) 98 06/16/17 20:19 96 21 06/16/17 19:45 97.6 62 20 144/65 (91) 96 06/16/17 17:45 97.7 64 18 147/65 (92) 98 06/16/17 16:45 97.9 75 18 163/79 (107) 99 06/16/17 15:45 98.0 97 18 172/88 (116) 99 06/16/17 15:45 98.0 102 19 172/88 (116) 98 06/16/17 12:00 97.4 61 18 153/70 (97) 99 Exam Comments lethargic, arousable CN--right upper motor neuron CN 7 palsey MOTOR--generalized weakness but weaker on the right side. Objective Radiology Results MRI brain----multiple acute/ subacute bilateral strokes MRA--significant right carotid stenosis Micro and Labs Laboratory Tests Test 06/17/17 03:34 White Blood Count 8.8 Red Blood Count 4.79 Hemoglobin 14.7 Hematocrit 43.2 Mean Corpuscular Volume 90.0 Mean Corpuscular Hemoglobin 30.7 Mean Corpuscular Hemoglobin Concent 34.1 Red Cell Distribution Width 13.2 Platelet Count 307 Mean Platelet Volume 8.8 Neutrophils (%) (Auto) 83.5 Lymphocytes (%) (Auto) 7.5 Monocytes (%) (Auto) 7.3 Eosinophils (%) (Auto) 1.3 Basophils (%) (Auto) 0.4 Neutrophils # (Auto) 7.3 Lymphocytes # (Auto) 0.7 Monocytes # (Auto) 0.6 Eosinophils # (Auto) 0.1 Basophils # (Auto) 0.0 CBC Comment DIFF FINAL Differential Comment Blood Urea Nitrogen 11 Creatinine 0.72 Random Glucose 74 Total Protein 7.3 Albumin 3.5 Calcium Level 8.9 Alkaline Phosphatase 73 Aspartate Amino Transf (AST/SGOT) 17 Alanine Aminotransferase (ALT/SGPT) 19 Total Bilirubin 0.5 Sodium Level 142 Potassium Level 3.5 Chloride Level 105 Carbon Dioxide Level 26.6 Anion Gap 10 Estimat Glomerular Filtration Rate 105 Triglycerides Level 70 Cholesterol Level 215 LDL Cholesterol 152 HDL Cholesterol 48.6 Cholesterol/HDL Ratio 4.42 Elías Tavera MD PhD Jun 17, 2017 09:24
--- NOTE | 2017-06-17 10:41 | HHI.PR ---
Subjective Remarks Patient is sedated this morning after he was given Ativan earlier for agitation. DW daughter at bedside. Objective Vitals Vital Signs Date Time Temp Pulse Resp B/P (MAP) Pulse Ox O2 Delivery O2 Flow Rate FiO2 06/17/17 07:45 97.4 99 18 151/93 (112) 95 06/17/17 04:45 98.6 105 20 158/84 (108) 95 06/16/17 23:45 97.7 62 18 173/77 (109) 98 06/16/17 20:19 96 21 06/16/17 19:45 97.6 62 20 144/65 (91) 96 06/16/17 17:45 97.7 64 18 147/65 (92) 98 06/16/17 16:45 97.9 75 18 163/79 (107) 99 06/16/17 15:45 98.0 97 18 172/88 (116) 99 06/16/17 15:45 98.0 102 19 172/88 (116) 98 06/16/17 12:00 97.4 61 18 153/70 (97) 99 I/O 06/16/17 06/16/17 06/16/17 06/17/17 06/17/17 06/17/17 06:59 14:59 22:59 06:59 14:59 22:59 # Voids 6 3 Result Diagram: 06/17/174 06/17/17333 Objective Remarks GENERAL: Elderly male, sedated. Briefly wake up with stimulation. CARDIOVASCULAR: Regular rate and rhythm without murmurs, gallops, or rubs. RESPIRATORY: Clear to auscultation. Breath sounds equal bilaterally. No wheezes , rales, or rhonchi. GASTROINTESTINAL: Abdomen soft, non-tender, nondistended. Normal active bowel sounds MUSCULOSKELETAL: Extremities without clubbing, cyanosis, or edema. NEURO: Sedated. Lethargic. A/P Problem List: (1) CVA (cerebral vascular accident) ICD Code: I63.9 - Cerebral infarction, unspecified (2) HTN (hypertension) ICD Code: I10 - Essential (primary) hypertension Assessment and Plan 1. CVA: H/o CVA w/ residual right-sided weakness, now w/ worsening weakness x2 wks, but worse than prior-difficult history to obtain as pt unable to provide history and daughter has limited knowledge of pt's condition. CT Head w/ no acute findings, Neuro Checks. MRI shows multiple areas of subacute infarct Appreciate Neurology following Aspirin 325 mg QD, Statin. PT/Speech for eval/tx. CTA head and Neck 2. HTN: BP labile. not on home medications as does not follow w/ doctors. Follow BP today. Plan to start Amlodipine tomorrow for better control 3. DVT Prophylaxis: Start Heparin 4. Social work for d/c planning as needed. Macey Pearce MD Jun 17, 2017 10:41
[2017-06-17] MEDS ORDERED: IOHEXOL 350 MG/ML 10 ML VIAL (for RAD DIAG) IVCONTRAST ONE (11:07)
[2017-06-17] MEDS ORDERED: QUEtiapine FUMARATE 25 MG TAB PO PRN (11:15)
[2017-06-17] MEDS ORDERED: PILL SPLITTER OTHER PRN (11:30)
[2017-06-17 11:45] VITALS: BP 107/59; PULSE 72; RESP 21; TEMP 98.2; O2SAT 97
--- NOTE | 2017-06-17 11:58 | RADRPT ---
EXAM DATE/TIME: 06/17/2017 11:01 [facility] COMPARISON: CTA CAROTID ARTERIES W 3D RECON, June 17, 2017, 11:01. MRA CAROTIDS W CONTRAST, June 16, 2017, 11: 34. MRA BRAIN W/O CONTRAST, June 16, 2017, 11:34. MRI BRAIN W/O CONTRAST, June 16, 2017, 11:34. CT BRAIN W/O CONTRAST, June 16, 2017, 2:19. CT BRAIN W/O CONTRAST, June 05, 2017, 23:17. INDICATIONS : Right sided weakness. IV CONTRAST: 75 cc Omnipaque 350 (iohexol) IV ; Cumulative dose for multiple exams. RADIATION DOSE: 10.42 CTDIvol (mGy) ; Combined studies MEDICAL HISTORY : Stroke. Hypertension. SURGICAL HISTORY : None. ENCOUNTER: Initial ACUITY: 1 day PAIN SCALE: 0/10 LOCATION: Bilateral neck TECHNIQUE: Volumetric scanning was performed using a multi-row detector CT scanner. The data was post processed with a variety of visualization algorithms including full volume maximum intensity projection, multi -planar sliding thin slab reformation, curved planar reformation, and surface rendering techniques. Using automated exposure control and adjustment of the mA and/or kV according to patient size, radiat ion dose was kept as low as reasonably achievable to obtain optimal diagnostic quality images. DICO M format image data is available electronically for review and comparison. FINDINGS: Intracranially the anterior cerebral, middle cerebral, basilar and vertebral arteries, anterior infer ior cerebellar arteries, posterior cerebral arteries are patent without high-grade stenosis or aneury sm.. CONCLUSION: Patent intracranial circulation. Arley Torres MD on June 17, 2017 at 11:46 Board Certified Radiologist. This report was verified electronically.
--- NOTE | 2017-06-17 12:17 | RADRPT ---
EXAM DATE/TIME: 06/17/2017 11:01 [facility] COMPARISON: CTA BRAIN W 3D RECON, June 17, 2017, 11:01. MRA CAROTIDS W CONTRAST, June 16, 2017, 11:34. MRA BR AIN W/O CONTRAST, June 16, 2017, 11:34. MRI BRAIN W/O CONTRAST, June 16, 2017, 11:34. INDICATIONS : Right sided weakness. IV CONTRAST: 75 cc Omnipaque 350 (iohexol) IV ; Cumulative dose for multiple exams. RADIATION DOSE: 10.42 CTDIvol (mGy) ; Combined studies MEDICAL HISTORY : Stroke. Hypertension. SURGICAL HISTORY : None. ENCOUNTER: Initial ACUITY: 1 day PAIN SCALE: 0/10 LOCATION: Bilateral head Elevated flow velocities and ICA/CCA ratios have been found to correlate with increased degrees of vessel stenosis, calculated as percentage of diameter relative to a normal segment of distal ICA/CCA. TECHNIQUE: Volumetric scanning was performed using a multirow detector CT scanner. The data was post processed with a variety of visualization algorithms including full-volume maximum intensity projection, multip lanar sliding thin-slab reformation, curved-planar reformation, and surface-rendering techniques. Us ing automated exposure control and adjustment of the mA and/or kV according to patient size, radiatio n dose was kept as low as reasonably achievable to obtain optimal diagnostic quality images. DICOM f ormat image data is available electronically for review and comparison. FINDINGS: Unfortunately there is severe motion artifact through the neck, and the carotid bifurcations are obsc ured. There is moderate atherosclerosis present at the aortic arch with calcific plaquing at the orig in of the left common carotid artery and subclavian artery without significant stenosis. Vertebral ar teries are obscured by motion artifact. CONCLUSION: Essentially nondiagnostic CTA secondary to significant motion artifact. Arley Torres MD on June 17, 2017 at 11:59 Board Certified Radiologist. This report was verified electronically.
[2017-06-17] MEDS: D5-1/2 NS + KCL 20 MEQ INJ 1,000 ML IV SCH ×2 (12:53→23:10)
[2017-06-17 13:16] LABS: HEMOGLOBIN A1C 4.8 % (4.3-6.0)
[2017-06-17 15:24] VITALS: PULSE 67
[2017-06-17 15:45] VITALS: BP 170/84; PULSE 90; RESP 19; TEMP 97.4; O2SAT 96
[2017-06-17 20:00] VITALS: BP 136/68; PULSE 68; PULSE 72; RESP 20; TEMP 97.6; O2SAT 95
[2017-06-17] MEDS: PRAVASTATIN SOD 40 MG TAB PO SCH (21:00)
[2017-06-17] MEDS: HEPARIN SODIUM - SQ 10,000 UNITS/ML VIAL SQ SCH (23:10)
[2017-06-18] VITALS (8 sets, daily range): BP systolic 114–165; BP diastolic 68–89; PULSE 55–98; RESP 16–19; TEMP 97.4–98.2; O2SAT 96–99
[2017-06-18] MEDS: INSULIN ASPART SUPPLEMENTAL SCALE SQ SCH ×4 (07:18→21:00)
[2017-06-18 07:50] LABS: HEMOGLOBIN 13.3 GM/DL (13.0-17.0); MEAN CELL VOLUME 90.2 FL (80.0-100.0); MEAN CORPUSCULAR HEMOGLOBIN 30.8 PG (27.0-34.0); MEAN CORPUSCULAR HGB CONC 34.1 % (32.0-36.0); MEAN PLATELET VOLUME 8.6 FL (7.0-11.0); PLATELET COUNT 267 TH/MM3 (150-450); RED BLOOD COUNT 4.32 MIL/MM3 (4.50-5.90); WHITE BLOOD COUNT 5.6 TH/MM3 (4.0-11.0)
[2017-06-18 08:08] LABS: BICARBONATE 24.4 MEQ/L (21.0-32.0); CALCIUM 8.4 MG/DL (8.5-10.1); CREATININE 0.69 MG/DL (0.60-1.30)
--- NOTE | 2017-06-18 08:48 | HHI.PR ---
Subjective Remarks Patient is much better today. He is awake and can hold a simple conversation. He does not know how or why he is in the hospital. Objective Vitals Vital Signs Date Time Temp Pulse Resp B/P (MAP) Pulse Ox O2 Delivery O2 Flow Rate FiO2 06/18/17 04:22 97.6 55 16 154/81 (105) 98 06/18/17 04:04 55 06/18/17 00:30 97.9 67 18 142/75 (97) 96 06/18/17 00:00 64 06/17/17 20:00 97.6 68 20 136/68 (90) 95 06/17/17 20:00 72 06/17/17 15:45 97.4 90 19 170/84 (112) 96 06/17/17 15:24 67 06/17/17 11:45 98.2 72 21 107/59 (75) 97 I/O 06/17/17 06/17/17 06/17/17 06/18/17 06/18/17 06/18/17 07:00 15:00 23:00 07:00 15:00 23:00 Intake Total 1763 ml 1942 ml Balance 1763 ml 1942 ml Intake Oral 240 ml IV Total 1763 ml 1702 ml # Voids 3 4 3 # Bowel Movements 0 Result Diagram: 06/18/17 0720 06/18/17 0720 Objective Remarks GENERAL: Elderly and frail male, in no apparent distress. CARDIOVASCULAR: Normal rate and regular rhythm without murmurs, gallops, or rubs. RESPIRATORY: Good respiratory efforts. Breath sounds equal and clear to auscultation bilaterally. GASTROINTESTINAL: Abdomen soft, non-tender, non-distended. Normal active bowel sounds MUSCULOSKELETAL: Extremities without cyanosis, or edema. NEURO: Alert & Oriented to self and place. Right side strength 3/5. Left side 5 /5. Mild expressive aphasia PSYCH: Appropriate mood and affect. A/P Problem List: (1) CVA (cerebral vascular accident) ICD Code: I63.9 - Cerebral infarction, unspecified (2) HTN (hypertension) ICD Code: I10 - Essential (primary) hypertension Assessment and Plan 1. CVA: H/o CVA w/ residual right-sided weakness, now w/ worsening weakness x2 wks, but worse than prior. CT Head w/ no acute findings, Neuro Checks. MRI shows multiple areas of subacute infarct Appreciate Neurology following Aspirin 325 mg QD, Statin. PT/Speech for eval/tx. CTA brain with no acute findings. CTA Neck with artifacts, no definite stenosis 2. HTN: BP labile. not on home medications as does not follow w/ doctors. Start Amlodipine today for better control 3. DVT Prophylaxis: Heparin Discharge Planning PT/OT. [place]. Macey Pearce MD Jun 18, 2017 08:48
[2017-06-18] MEDS ORDERED: DO NOT ADMINISTER ANTICOAGULANTS PRN (09:00)
[2017-06-18] MEDS ORDERED: NO SYSTEM NARCOTICS PRN (09:00)
[2017-06-18] MEDS ORDERED: ePHEDrine/NS 25 MG/5 ML SYRINGE IV PUSH PRN (09:00)
[2017-06-18] MEDS ORDERED: fentaNYL 2MCG-BUPIV 0.125% 100 ML EPIDURAL PRN (09:00)
[2017-06-18] MEDS: amLODIPine BESYLATE 5 MG TAB PO SCH (09:23)
[2017-06-18] MEDS: DOCUSATE SODIUM 50 MG/SENNA 8.6 MG TAB PO SCH ×2 (09:23→19:27)
[2017-06-18] MEDS: ASPIRIN 325 MG TAB PO SCH (09:23)
[2017-06-18] MEDS: SODIUM CHLORIDE 0.9% FLUSH 10 ML FLUSH IV FLUSH SCH ×2 (09:24→19:28)
[2017-06-18] MEDS: D5-1/2 NS + KCL 20 MEQ INJ 1,000 ML IV SCH ×2 (09:24→17:07)
[2017-06-18] MEDS: HEPARIN SODIUM - SQ 10,000 UNITS/ML VIAL SQ SCH ×2 (11:50→23:51)
--- NOTE | 2017-06-18 18:55 | ECHRPT ---
Indication: CVA/TIA CONCLUSIONS Normal left ventricular size. Wall thickness is normal. The left ventricular systolic function is low normal with an estimated ejection fraction in the rang e of 50- 55%. Mitral annular calcification is present. Trace mitral valve regurgitation. Aortic valve sclerosis is present. Mild aortic valve regurgitation. There is trivial pericardial effusion present. BP: / HR: Rhythm: MEASUREMENTS (Male / Female) Normal Values Technical Quality: 2D ECHO LV Diastolic Diameter PLAX 4.5 cm 4.2 - 5.9 / 3.9 - 5.3 cm LV Systolic Diameter PLAX 3.6 cm IVS Diastolic Thickness 1.1 cm 0.6 - 1.0 / 0.6 - 0.9 cm LVPW Diastolic Thickness 0.7 cm 0.6 - 1.0 / 0.6 - 0.9 cm LV Relative Wall Thickness 0.4 LA Systolic Diameter LX 3.7 cm 3.0 - 4.0 / 2.7 - 3.8 cm M-MODE Aortic Root Diameter MM 3.4 cm AV Cusp Separation MM 1.8 cm DOPPLER AV Peak Velocity 154.0 cm/s AV Peak Gradient 9.5 mmHg LVOT Peak Velocity 86.4 cm/s LVOT Peak Gradient 3.0 mmHg Mitral E Point Velocity 40.5 cm/s Mitral A Point Velocity 84.4 cm/s Mitral E to A Ratio 0.5 TR Peak Velocity 152.0 cm/s TR Peak Gradient 9.2 mmHg FINDINGS LEFT VENTRICLE Normal left ventricular size. Wall thickness is normal. The left ventricular systolic function is low normal with an estimated ejection fraction in the rang e of 50- 55%. RIGHT VENTRICLE Normal right ventricular size and systolic function. LEFT ATRIUM The left atrial size is normal. RIGHT ATRIUM The right atrial size is normal. ATRIAL SEPTUM Normal atrial septal thickness without atrial level shunting by limited color doppler interrogation. AORTA The aortic root and proximal ascending aorta are normal in size on limited imaging. MITRAL VALVE Mitral annular calcification is present. Trace mitral valve regurgitation. AORTIC VALVE Aortic valve sclerosis is present. Mild aortic valve regurgitation. TRICUSPID VALVE Structurally normal tricuspid valve. No tricuspid valve stenosis or regurgitation. PULMONARY VALVE The pulmonary valve is not well visualized. VESSELS The inferior vena cava is normal in size. PERICARDIUM There is trivial pericardial effusion present. Tl Sawyer MD, FACC (Electronically Signed) Final Date:18 June 2017 18:54
[2017-06-18] MEDS: PRAVASTATIN SOD 40 MG TAB PO SCH (19:45)
[2017-06-19] VITALS (7 sets, daily range): BP systolic 128–176; BP diastolic 67–84; PULSE 64–96; RESP 18; TEMP 97.3–98.5; O2SAT 92–99
[2017-06-19] MEDS: D5-1/2 NS + KCL 20 MEQ INJ 1,000 ML IV SCH ×3 (00:29→23:15)
[2017-06-19] MEDS: INSULIN ASPART SUPPLEMENTAL SCALE SQ SCH (08:00)
[2017-06-19] MEDS: amLODIPine BESYLATE 5 MG TAB PO SCH (09:08)
[2017-06-19] MEDS: ASPIRIN 325 MG TAB PO SCH (09:08)
[2017-06-19] MEDS: DOCUSATE SODIUM 50 MG/SENNA 8.6 MG TAB PO SCH ×2 (09:08→19:52)
[2017-06-19] MEDS: SODIUM CHLORIDE 0.9% FLUSH 10 ML FLUSH IV FLUSH SCH ×2 (09:09→19:52)
[2017-06-19] MEDS: HEPARIN SODIUM - SQ 10,000 UNITS/ML VIAL SQ SCH ×2 (11:02→22:25)
--- NOTE | 2017-06-19 11:14 | HHI.PR ---
Subjective Remarks No distress today. Pending evaluation for possible inpatient rehab at [facility]. No new complaints from the patient. Objective Vital Signs Date Time Temp Pulse Resp B/P (MAP) Pulse Ox O2 Delivery O2 Flow Rate FiO2 06/19/17 08:00 97.3 66 18 176/84 (114) 99 06/19/17 04:00 97.5 66 18 159/79 (105) 97 06/19/17 01:06 64 06/19/17 00:01 98.2 67 18 163/77 (105) 96 06/18/17 20:00 98.0 65 19 147/70 (95) 96 06/18/17 16:00 97.4 98 18 145/68 (93) 98 06/18/17 12:00 98.1 80 18 114/89 (97) 97 I/O 06/18/17 06/18/17 06/18/17 06/19/17 06/19/17 06/19/17 07:00 15:00 23:00 07:00 15:00 23:00 Intake Total 1942 ml 500 ml 360 ml Output Total 150 ml Balance 1942 ml -150 ml 500 ml 360 ml Intake Oral 240 ml 500 ml 360 ml IV Total 1702 ml Output Urine Total 150 ml # Voids 3 1 7 3 # Bowel Movements 0 1 5 0 Result Diagram: 06/18/1771906/18/17 07 Objective Remarks GENERAL: NAD, A&Ox3 HEAD: Normocephalic. NECK: Supple, trachea midline. No lymphadenopathy. EYES: No scleral icterus. No injection or drainage. CARDIOVASCULAR: Regular rate and rhythm without murmurs, gallops, or rubs. RESPIRATORY: Breath sounds equal bilaterally. No accessory muscle use. GASTROINTESTINAL: Abdomen soft, non-tender, nondistended. MUSCULOSKELETAL: No cyanosis, or edema. SKIN: Warm and dry. NEURO: No focal neurological deficitis. A/P Assessment and Plan 82 year old male admitted for CVA with weakness CVA (cerebral vascular accident) Continue PT Neurology following Daily aspirin Statin PT/OT/ST Placement in Rehab pending HTN (hypertension) Continue to monitor PT Adjust for control, now greater than 72 hours from CVA DVT Prophylaxis Heparin Discharge Planning PT/OT. [place]. Arnol Stapleton MD June 19, 2017 11:14
[2017-06-19] MEDS: PRAVASTATIN SOD 40 MG TAB PO SCH (19:52)
[2017-06-19] MEDS ORDERED: LORazepam 2 MG/ML VIAL IV PUSH ONE (21:45)
--- NOTE | 2017-06-19 21:45 | HHI.PR ---
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 Right carotid stenosis Plan continue aspirin 325 mg dailyu monitor cardiac telemetry to r/o afib consider intermediate designer anticoagulation if not contraindicated given has age and fall risk repeat CTA neck with sedation Diagnosis/Plan: Subjective Subjective Comments No acute events reported Active Medications Current Medications Medications (Trade) Dose Ordered Sig/Leonor Route Start Time Stop Time Status Last Admin (NS Flush) 2 ml BID IV FLUSH 06/16/17 09:00 06/19/17 19:52 (NS Flush) 2 ml UNSCH PRN IV FLUSH 06/16/17 04:15 (Vasotec Inj) 1.25 mg Q4H PRN IV PUSH 06/16/17 04:15 (Pravachol) 40 mg HS PO 06/16/17 21:00 06/19/17 19:52 (Zofran Inj) 4 mg Q6H PRN IVP 06/16/17 04:15 (Tylenol) 650 mg Q6H PRN PO 06/16/17 04:15 (Leslye-Colace) 1 tab BID PO 06/16/17 09:00 06/19/17 09:08 (Milk Of Magnesia Liq) 30 ml Q12H PRN PO 06/16/17 04:15 06/18/17 09:23 (Senokot) 17.2 mg Q12H PRN PO 06/16/17 04:15 06/18/17 09:23 (Dulcolax Supp) 10 mg DAILY PRN RECTAL 06/16/17 04:15 (Lactulose Liq) 30 ml DAILY PRN PO 06/16/17 04:15 06/18/17 09:23 (Aspirin) 325 mg DAILY PO 06/16/17 09:00 06/19/17 09:08 Potassium Chloride/Dextrose/ Sod Cl 1,000 ml @ 100 mls/hr Q10H IV 06/17/17 11:15 06/18/17 17:07 (SEROquel) 12.5 mg BID@09,12 PRN PO 06/17/17 11:15 (Pill Splitter) 1 ea UNSCH PRN OTHER 06/17/17 11:30 (Heparin Inj) 5,000 units Q12H SQ 06/17/17 23:00 06/19/17 11:02 (Norvasc) 5 mg DAILY PO 06/18/17 09:00 06/19/17 09:08 Allergies Allergies Coded Allergies No Known Allergies (Unverified06/05/17) Exam I&O / VS 06/19/17 06/19/17 06/20/17 15:00 23:00 07:00 Intake Total 650 ml Balance 650 ml Intake Oral 650 ml # Voids 5 # Bowel Movements 0 Vital Signs Date Time Temp Pulse Resp B/P (MAP) Pulse Ox O2 Delivery O2 Flow Rate FiO2 06/19/17 16:01 98.4 96 18 150/82 (104) 97 06/19/17 11:36 98.5 94 18 128/67 (87) 92 06/19/17 08:00 97.3 66 18 176/84 (114) 99 06/19/17 04:00 97.5 66 18 159/79 (105) 97 06/19/17 01:06 64 06/19/17 00:01 98.2 67 18 163/77 (105) 96 Exam Comments lethargic, arousable CN--right upper motor neuron CN 7 palsey MOTOR--generalized weakness but weaker on the right side. Objective Radiology Results cta--nondiagnostic due to motion artifact. Elías Tavera MD PhD June 19, 2017 21:45
[2017-06-19] MEDS ORDERED: IOHEXOL 350 MG/ML 10 ML VIAL (for RAD DIAG) IVCONTRAST ONE (22:55)
--- NOTE | 2017-06-19 23:31 | RADRPT ---
EXAM DATE/TIME: 06/19/2017 22:43 [facility] COMPARISON: CTA CAROTID ARTERIES W 3D RECON, June 17, 2017, 11:01. INDICATIONS : CVA; repeated study due to motion. IV CONTRAST: 75 cc Omnipaque 350 (iohexol) IV RADIATION DOSE: 11.63 CTDIvol (mGy) MEDICAL HISTORY : Cardiovascular disease. Stroke Hypertension. SURGICAL HISTORY : None. ENCOUNTER: Initial ACUITY: 3 days PAIN SCALE: Non-responsive LOCATION: Bilateral neck Elevated flow velocities and ICA/CCA ratios have been found to correlate with increased degrees of vessel stenosis, calculated as percentage of diameter relative to a normal segment of distal ICA/CCA. TECHNIQUE: Volumetric scanning was performed using a multirow detector CT scanner. The data was post processed with a variety of visualization algorithms including full-volume maximum intensity projection, multip lanar sliding thin-slab reformation, curved-planar reformation, and surface-rendering techniques. Us ing automated exposure control and adjustment of the mA and/or kV according to patient size, radiatio n dose was kept as low as reasonably achievable to obtain optimal diagnostic quality images. DICOM f ormat image data is available electronically for review and comparison. FINDINGS: AORTIC ARCH: That calcification of the aortic arch. All 3 arch vessels are patent but tortuous RIGHT CAROTID: The common carotid artery is intact. Calcification of the carotid bulb with calcified and noncalcifie d plaque in in the proximal internal resulting in a severe, 80-85% stenosis of the internal. The ext ernal carotid artery is intact. LEFT CAROTID: The common carotid artery is intact. There is calcification of the carotid bifurcation. The internal carotid artery is patent but there is a high-grade, greater than 70% stenosis of the external carotid . VERTEBRALS: Patient is left vertebral dominant. Both vertebrals are patent. CONCLUSION: 1. Dense atherosclerotic calcification in the aortic arch and both carotid bifurcations. 2. On the right, calcified and soft plaque seen results in a high-grade proximal stenosis of the inte rnal of 80-85%. This would be considered hemodynamically significant. 3. On the left, despite severe calcification, the internal carotid artery is patent. There is a 70% o stial stenosis of the external carotid. 4. Arch vessels are tortuous but patent. Patient is left vertebral dominant. Liang Baca MD on June 19, 2017 at 23:24 Board Certified Radiologist. This report was verified electronically.
[2017-06-20] VITALS: BP 139/88; PULSE 70; RESP 20; TEMP 97.3; O2SAT 96
[2017-06-20] MEDS: amLODIPine BESYLATE 5 MG TAB PO SCH (08:19)
[2017-06-20] MEDS: DOCUSATE SODIUM 50 MG/SENNA 8.6 MG TAB PO SCH (08:19)
[2017-06-20] MEDS: ASPIRIN 325 MG TAB PO SCH (08:19)
[2017-06-20] MEDS: D5-1/2 NS + KCL 20 MEQ INJ 1,000 ML IV SCH (08:20)
[2017-06-20] MEDS: SODIUM CHLORIDE 0.9% FLUSH 10 ML FLUSH IV FLUSH SCH (08:20)
[2017-06-20 08:23] VITALS: BP 187/87; PULSE 64; RESP 16; TEMP 98.1; O2SAT 95
[2017-06-20] MEDS ORDERED: DOCU100C15 PO (09:57)
[2017-06-20] MEDS ORDERED: PRAV40TA PO (09:57)
[2017-06-20] MEDS ORDERED: CLON0.1T PO (09:57)
[2017-06-20] MEDS ORDERED: ASA325 PO (09:57)
[2017-06-20] MEDS ORDERED: AMLO10TA2 PO (09:57)
--- NOTE | 2017-06-20 10:25 | HHI.DS ---
Discharge Summary Admission Date Jun 16, 2017 at 04:35 Discharge Date: June 20, 2017 Admitting Diagnosis (1) CVA (cerebral vascular accident) ICD Code: I63.9 - Cerebral infarction, unspecified Diagnosis: Principal (2) HTN (hypertension) ICD Code: I10 - Essential (primary) hypertension Diagnosis: Principal Procedures None Brief History - From Admission This is an 82-year-old male with a PMH of CVA w/ Residual Right-Sided Weakness who was brought to the ER by EMS secondary to worsening right-sided weakness and "word difficulty" per Daughter. Pt unable to provide any history, history obtained from daughter at bedside. States pt has h/o CVA w/ right-sided weakness, however ambulates without assistance. Approx 2wks ago had fall and was seen in ER 06/06/17 w/ shoulder dislocation s/p reduction, daughter states pt has had progressive difficulty w/ ambulation since that time. Today, however he told her symptoms were acutely worse. Daughter also notes word finding difficulty and garbled speech for approx 3-4wks. States he did not seek medical attention because "he doesn't like going to the doctor". Not on home medications. Hasn't seen a doctor in 50yrs per pt. On arrival, BP 220/108 , HR 74, O2 sat 97% RA, Afebrile. S/p Labetalol, repeat BP 149/76. CBC unremarkable. Chemistry unremarkable. INR 1.0. CT Head with no acute findings , moderate central and cortical atrophy, old left high frontal infarct stable from 06/05/2017. CBC/BMP: 06/18/17 0720 06/18/17 0720 Significant Findings Laboratory Tests Test 06/18/17 07:20 Red Blood Count 4.32 MIL/MM3 (4.50-5.90) Random Glucose 110 MG/DL (74-106) Calcium Level 8.4 MG/DL (8.5-10.1) PE at Discharge GENERAL: Elderly and frail male, in no apparent distress. CARDIOVASCULAR: Normal rate and regular rhythm without murmurs, gallops, or rubs. RESPIRATORY: Good respiratory efforts. Breath sounds equal and clear to auscultation bilaterally. GASTROINTESTINAL: Abdomen soft, non-tender, non-distended. Normal active bowel sounds MUSCULOSKELETAL: Extremities without cyanosis, or edema. NEURO: Alert & Oriented to self and place. Right side strength 3/5. Left side 5 /5. Mild expressive aphasia PSYCH: Appropriate mood and affect. Hospital Course Mr. Ivan is an 82-year-old male. He was admitted secondary to acute CVA. This may have been more than 1 CVA. He has had a decline in his right-sided motor function and his cognition. Only mild improvements have been seen. He will need custodial facility at time of discharge. He stable and cleared for discharge today to a custodial facility. Discharge will be with statin and aspirin. Pt Condition on Discharge: Stable Discharge Disposition: Discharge to SNF Discharge Time: > 30 minutes Discharge Instructions DIET: Follow Instructions for: As Tolerated, No Restrictions Activities you can perform: Regular-No Restrictions Follow up Referrals: PCP Follow-up - 2 Weeks New Medications: Amlodipine (Amlodipine) 10 Mg Tab 10 MG PO DAILY for Blood Pressure Management, #30 TAB 0 Refills Clonidine (Clonidine) 0.1 Mg Tab 0.1 MG PO BID PRN for SBP>160, DBP>90, #60 TAB 0 Refills Docusate Sodium (Docusate Sodium) 100 Mg Cap 100 MG PO BID PRN for CONSTIPATION, #60 CAP 0 Refills Aspirin (Px Aspirin) 325 Mg Tab 325 MG PO DAILY for Blood Clot Prevention, #30 TAB Pravastatin (Pravachol) 40 Mg Tab 40 MG PO HS for Cholesterol Management, #30 TAB Arnol Stapleton MD June 20, 2017 10:25
[2017-06-20] MEDS: HEPARIN SODIUM - SQ 10,000 UNITS/ML VIAL SQ SCH (11:35)
[2017-06-20 12:28] VITALS: BP 161/74; PULSE 66; RESP 19; TEMP 97.4; O2SAT 96
== END 2017-06-20 16:19 | DRG 65 ==
LOC: NEPE 01:54 → NEDA 04:35 → N06A 05:05
PROVIDERS: ADMIT Hospitalist; ATTEND Hospitalist
DX: I63.9 Cerebral infarction, unspecified (principal); I69.351 Hemiplegia and hemiparesis following cerebral infarction affecting right dominant side; I10 Essential (primary) hypertension; I65.21 Occlusion and stenosis of right carotid artery; R29.810 Facial weakness; R53.1 Weakness
CPT/HCPCS: 70450; 70496; 70498; 70544; 70548; 70551; 80048; 80053; 80061; 82948; 83036; 84484; 85025; 85027; 85610; 93306; A9579; J1644; J1815; J2060; J3480; J7030; Q9967